=== PATIENT | male | born 1970 | race Caucasian/White ===

== ENCOUNTER 2017-09-27 16:44 | Emergency (ER) | payer BC ==
[~2017-09-27] VITALS: Ht 170.2 cm; Wt 88.0 kg
[~2017-09-27 16:44] MED LIST: Flomax0.4 MG PO; HYDMOR2 PO; KETO10 PO; Zofran8 MG PO
[2017-09-27 17:20] LABS: BASOPHILS ABSOLUTE AUTO 0.04 K/mm3 (0.00-0.23); BASOPHILS PERCENT AUTO 1 % (0-2); EOSINOPHILS ABSOLUTE AUTO 0.16 K/mm3 (0.00-0.68); EOSINOPHILS PERCENT AUTO 3 % (0-6); Hematocrit 47.6 % (37.0-53.0); Hemoglobin 16.5 g/dL (13.5-17.5); IMMATURE GRAN ABSOLUTE AUTO 0.02 K/mm3 (0.00-0.10); IMMATURE GRAN PERCENT AUTO 0 % (0-1); LYMPHOCYTES PERCENT AUTO 31 % (21-46); MONOCYTES ABSOLUTE AUTO 0.69 K/mm3 (0.16-1.47); MONOCYTES PERCENT AUTO 12 % (4-13); Mean Corpuscular HGB 31.7 pg (26.0-34.0); Mean Corpuscular HGB Conc 34.7 g/dL (31.5-36.5); Mean Corpuscular Volume 91 fL (80-100); Mean Platelet Volume 10.3 fL (9.1-12.4); NEUTROPHILS ABSOLUTE AUTO 3.19 K/mm3 (1.96-9.15); NEUTROPHILS PERCENT AUTO 54 % (41-73); Platelet Count 249 K/mm3 (150-400); RDW Coefficient Variation 12.4 % (11.7-14.2); RDW Standard Deviation 41.6 fL (35.1-46.3); Red Blood Cell Count 5.21 M/mm3 (4.30-5.90)
[2017-09-27 17:37] LABS: Alanine Aminotransfer (ALT/SGP 31 U/L (12-78); Albumin, Blood 3.9 g/dL (3.4-5.0); Albumin/Globulin Ratio 1.1 (0.8-1.8); Alk Phos 84 U/L (50-136); Anion Gap 6 mmol/L (6-16); Aspartate Aminotrans (AST/SGOT 17 U/L (12-37); Bilirubin, Total 0.4 mg/dL (0.1-1.0); Blood Urea Nitrogen 19 mg/dL (8-24); Bun/Creatinine Ratio 19.3 (12.0-20.0); CO2, Blood 23 mmol/L (21-32); Calcium, Blood 9.7 mg/dL (8.5-10.1); Chloride, Blood 109 mmol/L (98-108); Creatinine, Blood 0.99 mg/dL (0.60-1.20); Globulin, Blood 3.5 g/dL (2.2-4.0); Glomerular Filtration Rate >60 (60-); Glucose, Blood 97 mg/dL (70-99); Potassium, Blood 4.1 mmol/L (3.5-5.5); Sodium, Blood 138 mmol/L (136-145); Total Protein, Blood 7.4 g/dL (6.4-8.2); Troponin I <0.015 ng/mL (0.000-0.040)
== END 2017-09-27 19:14 | disposition left against medical advice (07) ==
LOC: ER 16:44
PROVIDERS: Emergency Medicine
DX: R07.9 Chest pain, unspecified (principal); F17.210 Nicotine dependence, cigarettes, uncomplicated
CPT/HCPCS: 36415; 71046; 80053; 84484; 85025; 93005; 93010; 99285-25

== ENCOUNTER 2021-03-22 10:39 | Emergency (ER) | payer OTHER ==
[~2021-03-22] VITALS: Ht 170.2 cm; Wt 83.9 kg
== END 2021-03-22 13:55 | disposition home or self-care (01) ==
LOC: ER 10:39
DX: U07.1 COVID-19 (principal); F17.200 Nicotine dependence, unspecified, uncomplicated
CPT/HCPCS: 99284

== ENCOUNTER 2024-02-02 08:43 | Day surgery (SDC) | payer OTHER ==
[~2024-02-02] VITALS: Ht 170.2 cm; Wt 90.1 kg
[2024-02-02] VITALS (10 sets, daily range): BP systolic 121–143; BP diastolic 89–109
[~2024-02-02 08:43] MED LIST changes: +ALBU90OI INH
[2024-02-02] MEDS ORDERED: CeFAZolin Sodium 2,000 MG in NS 100 ML IV SCH (08:45)
[2024-02-02] MEDS ORDERED: Lactated Ringer's 1,000 ML IV SCH (08:45)
[2024-02-02] MEDS ORDERED: Bupivacaine 0.5% HCl 5 MG/ML 30MLVIAL ONE (09:33)
[2024-02-02] MEDS ORDERED: propofoL 20 ML IV ONE ×2 (09:42→10:49)
[2024-02-02] MEDS ORDERED: FentaNYL Citrate 50 MCG/ML 2 ML Injection ONE (09:42)
[2024-02-02] MEDS ORDERED: Dexamethasone Sod Phos 10 MG/ML 1ML VIAL ONE (09:43)
[2024-02-02] MEDS ORDERED: Lidocaine HCl 2% 20 ML MDV ONE (09:43)
[2024-02-02] MEDS ORDERED: Rocuronium Bromide 10 MG/ML 5ML Injection IV ONE (09:43)
[2024-02-02] MEDS ORDERED: Ondansetron HCl 2 MG / ML 2ML Vial ONE (09:43)
[2024-02-02] MEDS ORDERED: Ketorolac Tromethamine 30mg Vial ONE (09:43)
[2024-02-02] MEDS ORDERED: Ondansetron HCl 2 MG / ML 2ML Vial IV PRN (10:10)
[2024-02-02] MEDS ORDERED: FentaNYL Citrate 50 MCG/ML 2 ML Injection IV PRN ×3 (10:10)
[2024-02-02] MEDS ORDERED: HYDROmorphone HCl/Pf 1MG SYR IV PRN (10:10)
[2024-02-02] MEDS ORDERED: Labetalol HCL 5 MG/ML 4ML Injection (Single Dose) IV PRN (10:10)
[2024-02-02] MEDS ORDERED: Metoclopramide HCl 5MG / ML 2ML Vial IV PRN (10:10)
[2024-02-02] MEDS ORDERED: Glycopyrrolate 0.2 MG/ML 5ML VIAL ONE (11:04)
[2024-02-02] MEDS ORDERED: Neostigmine Methylsulfate 5MG/5ML SYR ONE (11:04)
[2024-02-02] MEDS ORDERED: HYDROcodone 5-APAP 325 TAB PO PRN (12:10)
--- NOTE | 2024-02-02 12:50 | NUR ---
Patient up to Ambulate independently. Gait steady. Discharge instructions reviewed with patient. Patient verbalizes understanding. Copy given to patient to take home, [facility]. Patient States Post-Procedure ride home has been arranged. Discharged via wheelchair to private car for ride home. PT TOLERATING PO. DRESSING C/D/I. PT REPORTS PAIN TOLERABLE, REPORTS READY TO GO HOME. PT ON ROOM AIR 96%. SENT WITH ICE PACK. REPORTS PICKING UP PAIN MEDS ALREADY.
== END 2024-02-02 12:50 | disposition home or self-care (01) ==
LOC: ORSCMMR 08:43 → ORD 10:00 → ORSCMMR 10:00
PROVIDERS: Surgery
PROC: 0YU60JZ Supplement Left Inguinal Region with Synthetic Substitute, Open Approach (ICD-10-PCS; principal; 2024-02-02 10:00)
DX: K40.90 Unilateral inguinal hernia, without obstruction or gangrene, not specified as recurrent (principal); J44.9 Chronic obstructive pulmonary disease, unspecified; Z79.899 Other long term (current) drug therapy; Z87.891 Personal history of nicotine dependence
CPT/HCPCS: A9270; C1781; J0690; J1100; J1885; J2405; J2704; J2710; J3010; J7120

== ENCOUNTER → 2024-08-19 | Outpatient (CLI) | payer OTHER | LOC: LAB SHORT 16:32 → LAB 16:32 | DX: Z51.89 Encounter for other specified aftercare (principal) | CPT/HCPCS: 87070; 87147; 87205 ==

== ENCOUNTER 2024-08-22 11:43 | Emergency (ER) | payer OTHER ==
[~2024-08-22] VITALS: Ht 170.2 cm; Wt 90.7 kg
[2024-08-22 11:47] VITALS: BP 138/99
[2024-08-22 12:14] LABS: BASOPHILS ABSOLUTE AUTO 0.04 K/mm3 (0.00-0.23); BASOPHILS PERCENT AUTO 1 % (0-2); EOSINOPHILS ABSOLUTE AUTO 0.18 K/mm3 (0.00-0.68); EOSINOPHILS PERCENT AUTO 3 % (0-6); Hematocrit 46.4 % (37.0-53.0); Hemoglobin 15.9 g/dL (13.5-17.5); IMMATURE GRAN ABSOLUTE AUTO 0.03 K/mm3 (0.00-0.10); IMMATURE GRAN PERCENT AUTO 1 % (0-1); LYMPHOCYTES ABSOLUTE AUTO 2.20 K/mm3 (0.84-5.20); LYMPHOCYTES PERCENT AUTO 36 % (21-46); MONOCYTES ABSOLUTE AUTO 0.72 K/mm3 (0.16-1.47); MONOCYTES PERCENT AUTO 12 % (4-13); Mean Corpuscular HGB Conc 34.3 g/dL (31.5-36.5); Mean Corpuscular Volume 92 fL (80-100); NEUTROPHILS ABSOLUTE AUTO 2.87 K/mm3 (1.96-9.15); NEUTROPHILS PERCENT AUTO 48 % (41-73); NRBC ABSOLUTE 0.00 K/mm3 (0.00-0.02); NRBC Auto 0.0 /100 WBC (0.0-0.2); Platelet Count 269 K/mm3 (150-400); RDW Coefficient Variation 12.8 % (11.7-14.2); RDW Standard Deviation 43.0 fL (35.1-46.3)
[2024-08-22 13:03] LABS: Alanine Aminotransfer (ALT/SGP 28.0 U/L (12-78); Albumin, Blood 4.0 g/dL (3.4-5.0); Albumin/Globulin Ratio 1.0 (0.8-1.8); Anion Gap 9.0 mmol/L (3-11); Aspartate Aminotrans (AST/SGOT 22.0 U/L (12-37); Bilirubin, Total 0.8 mg/dL (0.1-1.0); Blood Urea Nitrogen 16.0 mg/dL (8-24); CO2, Blood 24.0 mmol/L (21-32); Calcium, Blood 9.9 mg/dL (8.5-10.1); Chloride, Blood 107.0 mmol/L (98-108); Creatinine, Blood 0.97 mg/dL (0.60-1.20); Globulin, Blood 3.9 g/dL (2.2-4.0); Glucose, Blood 119.0 mg/dL (70-99); Potassium, Blood 3.9 mmol/L (3.5-5.5); Sodium, Blood 136.0 mmol/L (136-145); Total Protein, Blood 7.9 g/dL (6.4-8.2)
== END 2024-08-22 13:41 | disposition home or self-care (01) ==
LOC: ER 11:43
PROVIDERS: Emergency Medicine
DX: R42 Dizziness and giddiness (principal)
CPT/HCPCS: 71046; 80053; 84484; 85025; 93005; 93010; 99284-25